=== PATIENT | female | born 1965 | race Caucasian/White ===

== ENCOUNTER 2020-06-04 18:10 | Emergency (ER) | payer OTHER ==
[~2020-06-04] VITALS: Ht 162.5 cm; Wt 140.9 kg
[2020-06-04] MEDS ORDERED: RX-NAPROXEN (NAPROSYN) 250 MG TAB PPK#4 PO STA (18:33)
[2020-06-04] MEDS ORDERED: RX-TRIMETH/SULFA. 160-800 MG (BACTRIM DS) TAB PPK#2 PO STA ×2 (18:33)
[2020-06-04] MEDS ORDERED: KETOROLAC 60 MG/2 ML VIAL IM STA (18:33)
--- NOTE | 2020-06-04 18:42 | ED Integumentary General ---
General Chief Complaint: Skin/Wound Problems Stated Complaint: POSS SPIDER BITE RIGHT LEG Nursing Triage Note: AMB TO ROOM CONCERN HAS AREA ON R THIGH FOR SEVERAL DAYS THAT SHE THINKS MAY BE A SPIDER BITE. Source: patient History of Present Illness Date Seen by Provider: Jun 04, 2020 Time Seen by Provider: 18:18 Initial Comments PT ARRIVES VIA POV C/O "SPIDER BITE OR A BOIL" ON RIGHT UPPER THIGH--NOTICED YESTERDAY WHILE IN [place]. PT IS HERE AT THE [facility] AND LIVES IN [place] NO FEVER NO DRAINAGE NO STREAKS C/O REDNESS AND PAIN TO THE AREA STATES SHE HAD THE SAME THING ABOUT 2 WEEKS AGO, IN SAME AREA--JUST A LITTLE BIT ABOVE WHERE THE CURRENT SPOT IS--STATES IT GOT BETTER ON IT'S OWN DID NOT SEE OR FEEL ANYTHING BITE HER DENIES HISTORY OF SIMILAR DENIES BEING DIABETIC. BUT TAKES METFORMIN PER MED RECONCILIATION. LAST TETANUS VACCINATION IS UNKNOWN PT DOES NOT KNOW ANY OF HER MEDICATIONS HAS NOT TAKEN ANYTHING FOR PAIN PCP: DR. HOOD, IN [place] Allergies and Home Medications Allergies Coded Allergies: No Known Drug Allergies (Unverified , 06/04/20) Home Medications Sulfamethoxazole/Trimethoprim 1 Each Tablet, 2 EACH PO BID Prescribed by: DIANA BACON on 06/04/20 7341 Patient Home Medication List Home Medication List Reviewed: Yes Review of Systems Review of Systems Constitutional: no symptoms reported; No fever Respiratory: no symptoms reported Cardiovascular: no symptoms reported Musculoskeletal: see HPI Skin: see HPI Psychiatric/Neurological: No Symptoms Reported Past Igfjtqp-Xjzllq-Rcztew Hx Past Med/Social Hx: Reviewed and Corrections made Patient Social History Alcohol Use: Denies Use Recreational Drug Use: No Smoking Status: Never a Smoker Recent Foreign Travel: No Contact w/Someone Who Travel: No Recent Infectious Disease Expo: No Past Medical History Surgeries: Yes (BILAT KNEE SCOPES: X 4) Section, Orthopedic Respiratory: Yes Sleep Apnea Currently Using CPAP: No Cardiac: Yes Hypertension 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 ) Cardiovascular: normal peripheral pulses, regular rate, rhythm Respiratory: normal breath sounds Extremities: other (RIGHT UPPER INNER THIGH WITH OLD SCABBED WOUND SUPERIORLY, AND NEWER SCABBED AREA MORE DISTALLY, WITH SURROUDING ERYTHEMA, INDURATION AND TENDERNESS OF APPROXIMATELY 30 CM DIAMETER. NO FLUCTUANCE. NO DRAINAGE. NO STREAKS. ) Neurologic/Psychiatric: no motor/sensory deficits, alert Skin: normal color, warm/dry, other ( ABOVE) Progress/Results/Core Measures Results/Orders My Orders Orders - DIANA BACON DO Dipht,Perttravis(Acell),Tet Adult (Boostrix (06/04/20 18:45) Ketorolac Injection (Toradol Injection) (06/04/20 18:33) Clindamycin Injection (Cleocin Injection (06/04/20 18:45) Rx-Trimeth/Sulfameth Ds Tab (Rx-Bactrim/ (06/04/20 18:33) Rx-Trimeth/Sulfameth Ds Tab (Rx-Bactrim/ (06/04/20 18:33) Rx-Naproxen (Rx-Naprosyn) (06/04/20 18:33) Clonidine Tablet (Catapres Tablet) (06/04/20 19:15) Medications Given in ED Current Medications Medications Dose Ordered Sig/Chinedu Route Start Time Stop Time Status Last Admin Dose Admin Clindamycin Phosphate 600 mg ONCE ONCE IM 06/04/20 18:45 06/04/20 18:46 DC 06/04/20 18:47 600 MG Clonidine HCl 0.2 mg ONCE ONCE PO 06/04/20 19:15 06/04/20 19:16 DC 06/04/20 19:12 0.2 MG Diphtheria/ Tetanus/Acell Pertussis 0.5 ml ONCE ONCE IM 06/04/20 18:45 06/04/20 18:46 DC 06/04/20 18:46 0.5 ML Vital Signs/I&O 06/04/20 06/04/20 18:16 19:36 Temp 36.5 Pulse 119 103 Resp 18 19 B/P (MAP) 201/121 (147) 163/126 Pulse Ox 98 97 O2 Delivery Room Air Room Air Blood Pressure Mean: 147 Progress Progress Note : Progress Note GIVEN TETANUS VACCINATION GIVEN TORADOL FOR PAIN GIVEN CLINDAMYCIN IM PT CLAIMS SHE HAS TAKEN HER BLOOD PRESSURE MEDICATION TODAY, BUT HAS NO IDEA WHAT THE NAME OF MEDICATION IS. GIVEN CLONIDINE--BP DOWN AT DISMISSAL. PT ANXIOUS TO LEAVE--BECAUSE SHE IS GOING BACK TO THE [facility] PT ADVISED OF IMPORTANCE OF FOLLOW UP WITH HER PCP FOR FURTHER EVALUATION OF HER BLOOD PRESSURE ALSO ADVISED OF IMPORTANCE OF FOLLOW UP FOR CELLULITIS Departure Impression Primary Impression: Cellulitis of right thigh Additional Impressions: Poorly-controlled hypertension Morbid obesity Uhiprtdhsx-qkoqtthia-ckbtlgy (DPT) vaccination administered at current visit Disposition: HOME, SELF-CARE Condition: Stable Departure-Patient Inst. Referrals: NO,LOCAL PHYSICIAN (PCP/Family) Primary Care Physician Patient Instructions: Cellulitis (Skin Infection), Adult (DC), DASH Diet, Diphtheria and Tetanus Toxoids, and Acellular Pertussis Vaccine, High Blood Pressure (DC), MRSA (DC) Add. Discharge Instructions: DOUBLE YOUR DOSE OF [place] FOR YOUR BLOOD PRESSURE MOIST HEAT TO AREA AT 20 MINUTE INTERVALS DO NOT POKE, PICK AT OR SQUEEZE THE AREA IF THE AREA BEGINS TO DRAIN ON IT'S OWN, APPLY ANTIBIOTIC OINTMENT AND DRESSINGS DAILY FOLLOW UP WITH YOUR DR ON MONDAY FOR FURTHER CARE GO TO NEAREST ER IF SYMPTOMS WORSEN All discharge instructions reviewed with patient and/or family. Voiced understanding. Scripts Sulfamethoxazole/Trimethoprim (Bactrim Ds Tablet) 1 Each Tablet 2 EACH PO BID for 10 Days, #40 TAB Prov: DIANA BACON DO 06/04/20 DIANA BACON DO Jun 04, 2020 18:42
[2020-06-04] MEDS ORDERED: TETANUS,DIPTH,PERTUSS P/F (BOOSTRIX) 0.5 ML VIAL IM ONE (18:45)
[2020-06-04] MEDS ORDERED: CLINDAMYCIN 600 MG/4ML (CLEOCIN) VIAL IM ONE (18:45)
[2020-06-04] MEDS ORDERED: SULF1TAB35 PO (18:48)
--- NOTE | 2020-06-04 19:01 | NUR ---
REPORT TO KRYSTAL BARTLETT
[2020-06-04] MEDS ORDERED: cloNIDine 0.1 MG (CATAPRES) TAB PO ONE (19:15)
[2020-06-04 19:36] VITALS: BP 163/126
== END 2020-06-04 19:36 | disposition home or self-care (01) ==
LOC: ER 18:15
DX: L03.115 Cellulitis of right lower limb (principal); E66.01 Morbid (severe) obesity due to excess calories; I10 Essential (primary) hypertension; Z23 Encounter for immunization
CPT/HCPCS: 90715; 99284